=== PATIENT | male | born 1960 | race Caucasian/White ===

== ENCOUNTER 2022-09-02 10:59 | Outpatient (CLI) | payer OTHER | END 2022-09-02 23:59 | disposition home or self-care (01) | LOC: RAD 10:59 | PROVIDERS: ATTEND Chiropractor | DX: M51.37 Other intervertebral disc degeneration, lumbosacral region (principal); M48.061 Spinal stenosis, lumbar region without neurogenic claudication; M25.78 Osteophyte, vertebrae; M12.88 Other specific arthropathies, not elsewhere classified, other specified site | CPT/HCPCS: 72100 ==